=== PATIENT | female | born 1970 | race Caucasian/White ===

== ENCOUNTER → 2018-12-13 18:08 | Outpatient (CLI) | payer MEDICARE, MEDICAID ==
[2018-12-18 18:07] LABS: AEROBE ID Final report (())
== END | disposition home or self-care (01) ==
LOC: D.LABREF 18:08
PROVIDERS: ATTEND Urology
DX: D72.829 Elevated white blood cell count, unspecified (principal)

== ENCOUNTER → 2018-12-20 08:01 | Outpatient (CLI) | payer MEDICARE, MEDICAID | END | disposition home or self-care (01) | LOC: D.CT 08:01 | PROVIDERS: ATTEND Urology | DX: Z87.442 Personal history of urinary calculi (principal) ==

== ENCOUNTER → 2019-07-13 07:49 | Outpatient (CLI) | payer MEDICARE, MEDICAID | END | disposition home or self-care (01) | LOC: D.CT 07:49 | PROVIDERS: ATTEND Urology | DX: Q61.5 Medullary cystic kidney (principal) ==

== ENCOUNTER → 2019-07-23 18:12 | Outpatient (CLI) | payer MEDICARE, MEDICAID | END | disposition home or self-care (01) | LOC: D.LABREF 18:12 | PROVIDERS: ATTEND Urology | DX: N39.0 Urinary tract infection, site not specified (principal) ==

== ENCOUNTER 2019-08-02 08:41 | Day surgery (SDC) | payer MEDICARE, MEDICAID ==
[~2019-08-02] VITALS: Ht 160 cm; Wt 61.2 kg
[~2019-08-02 08:41] MED LIST: AMOXICILLIN500 M1 PO; BRILINTA90 MG PO; CYMBALTA30 MG; FLOMAX0.4 MG PO; HYDROCODON-ACE1 EAC7 PO; TOPROL XL25 MG PO; UROCIT-K10 MEQ PO; VALIUM10 MG PO
[2019-08-02 09:19] LABS: HEMATOCRIT 46.4 % (36.0-48.0); HEMOGLOBIN 15.4 g/dL (12-16); MCH 32.3 pg (26.0-34.0); MCHC 33.2 g/dL (31.0-37.0); MCV 97.3 fL (80.0-100.0); MEAN PLATELET VOLUME 10.9 fL (7.4-10.4); RBC 4.77 10x6/uL (4.00-5.40); RDW 13.3 % (11.5-14.5); WBC 6.6 10x3/uL (4.8-10.8)
[2019-08-02 09:43] VITALS: BP 92/52; Ht 160 cm; Wt 61.2 kg
--- NOTE | 2019-08-02 16:13 | NUR ---
1335 IV REMOVED AND INSTRUCTIONS GIVEN TO PT.
--- NOTE | 2019-08-02 18:55 | OP ---
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 PROCEDURES: Cystoscopy, left retrograde pyelogram, left extracorporeal shockwave lithotripsy times 2500 shocks. FINDINGS: Radiodense right renal stones, radiolucent left upper pole nolberto 4-mm stone. BLOOD LOSS: None. CLINICAL HISTORY: This is a 48-year-old female with a history of medullary sponge kidney and persistent passage of small kidney stones. She is on potassium citrate to alkalinize the urine and to prevent formation of new stones. She does have preexisting old stones. Her CT scan suggested a 14-mm right upper pole renal stone and a 9-mm left renal stone. There are no ureteral stones or hydronephrosis. She continues to have ongoing left-sided flank pain. Therefore, we had planned for a left ureteral stent insertion and left ESWL today. She was given ampicillin and sulbactam mental health practitioner to the OR. SHE IS ALLERGIC TO CODEINE, MORPHINE AND LEVAQUIN. She is getting [place] at the present time. DESCRIPTION OF PROCEDURE: The patient was placed on the treatment table. We could not identify a definite radiodense stone on the left side. On the right side, we could see some punctate stones arrayed in the calices. It was therefore decided to give her TIVA initially and we could do a retrograde pyelogram on the left side in order to see if we can find the stone. She was placed into lithotomy position and prepped and draped. 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 I do not see any other genital warts elsewhere. A 21-Hong Konger cystoscope with 30-degree lens was used for visualization. She has single ureteral orifices in the bladder. There were no bladder tumors seen. The left ureteral orifice was intubated with a 5-Hong Konger open-ended ureteral catheter. Diluted contrast was injected. The left ureter appears hydronephrotic, but there are no stones or other filling defects. It may just be a very dilated ureter chronically. The left kidney showed a radiolucent filling defect in the upper pole lateral nolberto. This was presumably our stone as we could see a whole rim of contrast around it. We then targeted the stone. She was converted to general anesthetic. Using the contrast to target the stone, we gave 1500 shocks. At that point, the contrast had washed out. The scope was reintroduced and another retrograde pyelogram was performed. This showed that the stone has broken up at this point and there was a 2-mm speck as the largest speck remaining. We decided to target this again and gave another 1000 shocks for a total of 2500 shocks. The patient was then awakened and brought to the recovery room. I will see her in followup in 2 weeks' time with a KUB. At that time, I will discuss excision of the genital warts also. Because of the small size of the stone involved, I did not OPERATIVE REPORT [id number] HAILEE VORA give her a left ureteral stent. TRANSINT:[id number] Voice Confirmation ID: [id number] DOCUMENT ID: [id number] CLAUDIA SHETTY MD at 1855 CC: [id number] DICTATION DATE: 08/02/19 1224 REGISTERED MEDICAL ASSISTANT: 08/02/19 1617 [facility] 08/02/19 [id number] [place] [address]
== END 2019-08-02 13:55 | disposition home or self-care (01) ==
LOC: D.OPS 08:41 → D.PAN 09:55 → D.OPS 10:45 → D.PAN 10:45 → D.OPS 11:00 → D.PAN 12:20 → D.OPS 13:55
PROVIDERS: Anesthesiology; ATTEND Urology
DX: Q61.5 Medullary cystic kidney (principal); N20.0 Calculus of kidney; I25.2 Old myocardial infarction; I10 Essential (primary) hypertension; I25.10 Atherosclerotic heart disease of native coronary artery without angina pectoris; E78.00 Pure hypercholesterolemia, unspecified; Z72.0 Tobacco use; B07.9 Viral wart, unspecified

== ENCOUNTER 2019-09-10 13:05 | Day surgery (SDC) | payer MEDICARE, MEDICAID ==
[2019-09-07 11:36] LABS: CALCIUM 8.4 mg/dL (8.5-10.1); CARBON DIOXIDE 26.1 mmol/L (21.0-32.0); CREATININE - SERUM 1.3 mg/dL (0.6-1.3); POTASSIUM - SERUM 4.1 mmol/L (3.5-5.1)
[2019-09-07 11:37] LABS: UDS - AMPHET NEGATIVE QUAL (NEGATIVE); UDS - BARB NEGATIVE QUAL (NEGATIVE); UDS - BENZO POSITIVE QUAL (NEGATIVE); UDS - COCAINE NEGATIVE QUAL (NEGATIVE); UDS - OPIATE NEGATIVE QUAL (NEGATIVE); UDS - PCP NEGATIVE QUAL (NEGATIVE); UDS - THC POSITIVE QUAL (NEGATIVE)
[2019-09-07 11:44] LABS: BASOPHILS 0.1 % (0-2); EOSINOPHILS 1.1 % (0-7); HEMATOCRIT 44.8 % (36.0-48.0); HEMOGLOBIN 14.7 g/dL (12-16); IMMATURE GRANULOCYTES 0.2 % (0-5); MCH 32.6 pg (26.0-34.0); MCHC 32.8 g/dL (31.0-37.0); MCV 99.3 fL (80.0-100.0); MEAN PLATELET VOLUME 11.2 fL (7.4-10.4); MONOCYTES 5.3 % (2-11); NEUTROPHILS 60.3 % (40-80); PLATELET COUNT 169 10x3/uL (130-400); RBC 4.51 10x6/uL (4.00-5.40); RDW 13.2 % (11.5-14.5); WBC 8.3 10x3/uL (4.8-10.8)
[~2019-09-10] VITALS: Ht 160 cm; Wt 54.9 kg
[2019-09-10 07:41] VITALS: BP 90/58; Ht 160 cm; Wt 54.9 kg
--- NOTE | 2019-09-10 12:11 | NUR ---
1210 WARM BLANKET SUPPLIED
--- NOTE | 2019-09-10 12:29 | NUR ---
1205 DR. ANDREA ROUNDS ON PT. WITH DAUGHTER.
--- NOTE | 2019-09-10 13:02 | NUR ---
PT LEFT UNIT VIA WC AT 1302
--- NOTE | 2019-09-10 13:02 | NUR ---
DC INSTRUCTIONS GIVEN TO PT. STATES UNDERSTANDING. DC'D IV CATH FULLY INTACT.
--- NOTE | 2019-09-11 11:42 | OP ---
PATIENT NAME: HAILEE VORA MEDICAL RECORD: [id number] :68 LOCATION:D[facility] ADMISSION DATE: SURGEON: VIVIEN ANDREA MD DATE OF OPERATION: 09/10/2019 PREOPERATIVE DIAGNOSIS: Vulvar mass. POSTOPERATIVE DIAGNOSES: 1. Vulvar cystic mass. 2. Vulvar solid mass. PROCEDURE PERFORMED: Excision of vulvar masses. SURGEON: Vivien Andrea MD CHILD WELFARE ASSISTANT: Dasha Maldonado ANESTHESIOLOGIST: Dr. Munoz. ANESTHESIA: General with LMA. FINDINGS: A cystic mass located at the 10 o'clock position in the vulva deep tissues. With dissection, a solid granular mass was found just medial and inferior to this. SPECIMENS REMOVED: 1. Vulvar mass. 2. Granular aspirate portions of mesh tape. SPECIMEN DISPOSITION: All specimens were to pathology. ESTIMATED BLOOD LOSS: Minimal. FLUIDS: 1 liter lactated Ringer's. URINE OUTPUT: Quantity sufficient void prior to this procedure. COMPLICATIONS: None. DRAINS: None. INDICATIONS: The patient is a 48-year-old female with multiple surgeries for a persistent right Bartholin's gland. The patient has had marsupialization and removal of her gland. Shortly after the last procedure, the patient developed a cystic mass of the right vulva with fistulous drainage to the perineum. The patient is consented for removal of mass and any indicated procedure. DESCRIPTION OF PROCEDURE: After informed consent was assured, the patient was taken to the operating room where she was placed in [facility]. The patient is now prepped and draped in the usual sterile fashion. The vulva was examined and 2 fistulous tracts were identified and lacrimal duct dilators were used to follow this tract to the cystic mass. An elliptical incision was made around the fistulas and using a 15 blade incision was extended 2 cm above and 2.5 to 3 cm below this elliptical incision about the fistulas. The dissection begins with Metzenbaum scissors. The dissection of the deep tissues from the OPERATIVE REPORT [id number] HAILEE VORA cystic mass is concluded and the mass and fistulous tracts were removed. Examination reveals a deeper solid mass. This was grasped with an Allis clamp and placed on gentle traction and dissection of this mass continues both in the deeper tissues and moving medial to the more superficial tissues underlying the vaginal mucosa. These tissues were removed and sent to pathology. During the dissection of the solid mass, a portion of vaginal tape is encountered and removed as well. The deep tissue was now reapproximated with interrupted 3-0 Vicryl on a SH needle. Once the space has been eliminated, the skin of the vulva was reapproximated in a subcuticular fashion with some trimming of the epidermis for good reapproximation. Sponge, lap, and needle counts correct times 2. TRANSINT:[id number] Voice Confirmation ID: [id number] DOCUMENT ID: [id number] VIVIEN ANDREA MD at 1142 CC: [id number] DICTATION DATE: 09/10/19 1119 YARD FOREMAN: 09/10/192039 [facility] 09/10/19 [facility] [address] [place] [address]
== END 2019-09-10 13:06 | disposition home or self-care (01) ==
LOC: D.OPS 13:05
PROVIDERS: Anesthesiology; ATTEND Obstetrics & Gynecology
DX: N90.7 Vulvar cyst (principal); N90.89 Other specified noninflammatory disorders of vulva and perineum; Z72.0 Tobacco use; N94.10 Unspecified dyspareunia; E78.00 Pure hypercholesterolemia, unspecified; I10 Essential (primary) hypertension; I25.2 Old myocardial infarction; I25.10 Atherosclerotic heart disease of native coronary artery without angina pectoris

== ENCOUNTER → 2019-09-27 07:15 | Day surgery (SDC) | payer MEDICARE, MEDICAID ==
[~2019-09-27] VITALS: Ht 160 cm; Wt 54.9 kg
[2019-09-27 07:36] LABS: HEMATOCRIT 45.8 % (36.0-48.0); HEMOGLOBIN 15.1 g/dL (12-16); MCH 32.2 pg (26.0-34.0); MCV 97.7 fL (80.0-100.0); MEAN PLATELET VOLUME 10.9 fL (7.4-10.4); RBC 4.69 10x6/uL (4.00-5.40); WBC 14.1 10x3/uL (4.8-10.8)
[2019-09-27 07:56] VITALS: BP 105/62; Ht 160 cm; Wt 54.9 kg
--- NOTE | 2019-09-27 10:52 | OP ---
PATIENT NAME: HAILEE VORA MEDICAL RECORD: [id number] :68 LOCATION:D.[facility] ADMISSION DATE: SURGEON: CLAUDIA SHETTY MD DATE OF OPERATION: 09/27/2019 SURGEON: Claudia Shetty MD ANESTHESIA: General anesthesia by Jez Curtis CRNA. DIAGNOSIS: Medullary sponge kidney with multiple right renal stones. PROCEDURE: Right extracorporeal shock wave lithotripsy (ESWL) times 3000 shocks. About 7 of the stones were treated being in the lower and middle upper pole. FINDINGS: Multiple radiodense right renal stones about 3-4 mm in size. ESTIMATED BLOOD LOSS: None. CLINICAL HISTORY: This is a 49-year-old female, who has a known history of renal medullary sponge kidney and nephrocalcinosis. She is on potassium citrate to alkalinize the urine and prevent formation of new stones. She continues to pass stones and have ongoing right flank pain. It is not certain which of her multiple right renal stones causing the pain and therefore, we are going to try to treat as many of the stones as possible in one session. We are limited to 3000 shocks, maximum to a kidney at any given time. She is not allergic to any antibiotics. She was given ampicillin and sulbactam correctional food service supervisor to the OR. DESCRIPTION OF PROCEDURE: The patient was placed on the treatment table. She was given fluoroscopy so that we could visualize the stones. The stones are easily targeted. She was then given induction of general anesthesia. We started from the lowest pole stone cluster and gave that stone a few 100 shocks and then moved progressively up towards the cranial end of the kidney. In this way, the lower pole stone clusters as well as the mid pole stone clusters well treated, about 7 stones were treated. We also treated one stone in the mid upper pole. There is still an upper pole stone cluster which we could not treat. However, what we did treat has been completely broken up. I will see her back in followup in 2 weeks' time with a KUB and will determine if she needs further treatment of the remaining upper pole stone cluster. TRANSINT:[id number] Voice Confirmation ID: [id number] DOCUMENT ID: [id number] CLAUDIA SHETTY MD at 1052 CC: [id number] DICTATION DATE: 09/27/19 0957 SOUND EFFECTS TECHNICIAN: 09/27/19 1033 [facility] [address] [facility] [place] [address]
--- NOTE | 2019-09-27 13:46 | NUR ---
1135 ALL DC CRITERIA MET. TAKEN OUT VIA W/C AND ASSISTED TO CAR WITH FRIEND. ADVISED TO CALL OR COME BACK IF ANY PROBLEMS.
== END | disposition home or self-care (01) ==
LOC: D.OPS 07:15 → D.PAN 08:15
PROVIDERS: Anesthesiology; ATTEND Urology
DX: N20.0 Calculus of kidney (principal); Q61.5 Medullary cystic kidney; I10 Essential (primary) hypertension; I51.9 Heart disease, unspecified

== ENCOUNTER → 2019-10-09 09:13 | Outpatient (CLI) | payer MEDICARE, MEDICAID ==
[2019-09-27 07:56] VITALS: BMI 21.4
[~2019-10-09 09:13] MED LIST changes: +BACTRIM 400-801 TAB PO; +HYDROCODON-ACE1 EAC2 PO
== END | disposition home or self-care (01) ==
LOC: D.RAD 09:13
PROVIDERS: ATTEND Urology
DX: Q61.5 Medullary cystic kidney (principal); N20.0 Calculus of kidney

== ENCOUNTER → 2019-10-10 17:10 | Outpatient (CLI) | payer MEDICARE, MEDICAID ==
[2019-09-27 07:56] VITALS: BMI 21.4
== END | disposition home or self-care (01) ==
LOC: D.LABREF 17:10
PROVIDERS: ATTEND Urology
DX: R31.9 Hematuria, unspecified (principal); R82.90 Unspecified abnormal findings in urine

== ENCOUNTER 2019-10-11 07:12 | Day surgery (SDC) | payer MEDICARE, MEDICAID ==
[~2019-10-11] VITALS: Ht 160 cm; Wt 53.1 kg
[2019-10-11 07:37] LABS: BASOPHILS 0.2 % (0-2); EOSINOPHILS 2.2 % (0-7); HEMATOCRIT 45.5 % (36.0-48.0); HEMOGLOBIN 15.1 g/dL (12-16); IMMATURE GRANULOCYTES 0.5 % (0-5); LYMPHOCYTES 37.6 % (15-50); MCH 32.5 pg (26.0-34.0); MCHC 33.2 g/dL (31.0-37.0); MCV 98.1 fL (80.0-100.0); MEAN PLATELET VOLUME 10.8 fL (7.4-10.4); MONOCYTES 7.5 % (2-11); PLATELET COUNT 187 10x3/uL (130-400); RBC 4.64 10x6/uL (4.00-5.40); RDW 12.8 % (11.5-14.5); WBC 9.6 10x3/uL (4.8-10.8)
[2019-10-11 09:27] VITALS: BP 116/69; Ht 160 cm; Wt 53.1 kg
--- NOTE | 2019-10-11 12:49 | OP ---
PATIENT NAME: HAILEE VORA MEDICAL RECORD: [id number] :68 LOCATION:[facility] ADMISSION DATE: SURGEON: CLAUDIA SHETTY MD DATE OF OPERATION: 10/11/2019 SURGEON: Claudia Shetty MD ANESTHESIA: General anesthesia by Aliya Vasquez CRNA DIAGNOSES: Medullary sponge kidney with right renal stones. PROCEDURES: Cystoscopy, right ureteral stent insertion 6-Beninese x 24 cm with string attached, right ESWL times 3000 shocks. FINDINGS: Small right radiodense renal stones. No stones seen along the ureter. BLOOD LOSS: None. CLINICAL HISTORY: This is a 49-year-old female with a history of medullary sponge kidney. She has been passing small renal stones with episodes of acute renal colic. Recently, we performed lithotripsy without a stent inserted. We treated the larger stones from the lower pole and moved up towards the mid pole of the kidney. In the interim, she has passed some stone fragments which she has collected. We will eventually send those for stone analysis once she has some over to us. However, she still has episodes of flank pain. There is a collection in the upper pole and the mid to upper pole of the kidney, which we have not treated yet. She comes now to have these stones treated. She was given ampicillin and sulbactam 3 grams IV manager of business operations to the OR. She does not want to have a ureteral stent inserted to help relieve this passage of the stones. DESCRIPTION OF PROCEDURE: The patient was placed on the treatment table. Fluoroscopy was performed and we could see the stones in the kidney. There are relatively small in size. She was then given induction of general anesthesia and placed into lithotomy position. She was prepped and draped. A 21-Beninese cystoscope with 30-degree lens was used for visualization. No bladder tumors were seen. The Sensor wire was inserted into the right ureteral orifice. It was passed up into the right renal pelvis. Following the Sensor wire on fluoroscopy, we could not find any radiodensities along it to indicate a ureteral stone. Once the wire was in the correct position, then the stent was passed up into the kidney over the wire. The wire was then withdrawn entirely. The stent was pushed into the bladder using a pusher. The bladder was emptied through the cystoscope sheath and then the scope was removed entirely. The string on the distal end of the stent was maintained. It was taped to the suprapubic region with a piece of Tegaderm. We then targeted the mid pole stones and gave them several hundred shocks. Whatever was required to break them up. Then, we moved to the next stone more cranially and in this way progressed up to treat all of the larger stones that we could see. I will see her in followup in 2 weeks' time with a KUB to determine the remaining stone burden and remove the stent at that time. TRANSINT:[id number] Voice Confirmation ID: [id number] DOCUMENT ID: [id number] OPERATIVE REPORT [id number] HAILEE VORA ROBERT S MD at 1249 CC: [id number] DICTATION DATE: 10/11/19 1059 MASK DESIGN ENGINEER: 10/11/19 1120 [facility] [address] [place] [address]
--- NOTE | 2019-10-11 13:47 | NUR ---
1325 IV DC'D. CATHETER TIP INTACT. NO BLEEDING AT SITE. BANDAID APPLIED. PT IN CHEERFUL MOOD AND STATES SHE UNDERSTANDS DISCHARGE INSTRUCTIONS. SHE IS RATING HER PAIN LEVEL AT A 8 OUT OF 10, BUT IS NOT TEARFUL.
--- NOTE | 2019-10-11 13:50 | NUR ---
1345 PT VERBALIZES DESIRE TO GO HOME EVEN WITH PAIN LEVEL OF 8. STATES SHE WILL TAKE ANOTHER PAIN PILL AFTER SHE GETS HOME WHICH SHE ESTIMATES AT ANOTHER 2 HOURS IN TRAVEL.
== END 2019-10-11 13:45 | disposition home or self-care (01) ==
LOC: D.PAN 07:12 → D.OPS 09:30 → D.PAN 13:45
PROVIDERS: ATTEND Urology
DX: Q61.5 Medullary cystic kidney (principal); N20.0 Calculus of kidney; I10 Essential (primary) hypertension; I25.2 Old myocardial infarction; Z72.0 Tobacco use; N30.00 Acute cystitis without hematuria

== ENCOUNTER 2020-04-10 05:20 | Day surgery (SDC) | payer MEDICARE, MEDICAID ==
[2020-04-08 10:13] LABS: HEMATOCRIT 42.5 % (36.0-48.0); HEMOGLOBIN 13.9 g/dL (12-16); MCHC 32.7 g/dL (31.0-37.0); MCV 97.9 fL (80.0-100.0); MEAN PLATELET VOLUME 10.6 fL (7.4-10.4); RBC 4.34 10x6/uL (4.00-5.40)
[~2020-04-10] VITALS: Ht 160 cm; Wt 52.2 kg
[~2020-04-10 05:20] MED LIST changes: +LIPITOR40 MG PO
[2020-04-10 07:00] VITALS: BP 93/53; Ht 160 cm; Wt 52.2 kg
--- NOTE | 2020-04-10 10:20 | OP ---
PATIENT NAME: HAILEE VORA MEDICAL RECORD: [id number] :68 LOCATION:D[facility] ADMISSION DATE: SURGEON: ABDIEL SHETTY MD DATE OF OPERATION: 04/10/2020 SURGEON: Abdiel Shetty MD ANESTHESIA: General anesthesia by Feng Juarez CRNA DIAGNOSIS: Right upper pole renal stones. PROCEDURE: Right extracorporeal shockwave lithotripsy times 3000 shocks. FINDINGS: Faintly radiodense right upper pole renal stones, which are better defined with IV contrast for IVP. CLINICAL HISTORY: This is a 49-year-old female with history of right-sided kidney stones. At her last lithotripsy session, we treated the lower pole stones and some mid pole stones. She still has a collection of stones in the right upper pole of the kidney. She comes now to have these treated. She does not want to have a stent placed. She was given Ancef 2 grams IV injection molding machine operator to the OR. DESCRIPTION OF PROCEDURE: We first placed the patient on the treatment table and performed fluoroscopy. She was constipated and there are lot of contents in the colon. It was difficult to define, which were the actual radiodensities which formed the kidney stones. By scanning back and forth in 2 planes, we finally identified some possible specimens. We then gave her 50 mL of Isovue 61% IV. This allowed us to get an IVP and this better defined the renal collecting system and renal pelvis. We could thus target the stones within the right upper pole calices. These were targeted in 2 planes. The patient was then given induction of general anesthesia and then we managed to start treatment. At 1500 shocks, we retargeted another stone cluster in the upper pole of the kidney and the more lateral plane and completed the rest of the treatment on these stones. At the end of the procedure, the upper pole was now largely clear of any calcifications. I will see the patient back in followup in 1 months' time with a KUB. TRANSINT:[id number] Voice Confirmation ID: [id number] DOCUMENT ID: [id number] ABDIEL SHETTY MD at 1020 CC: [id number] DICTATION DATE: 04/10/20905 CARD DECORATOR: 04/10/2057 [id number] [place] [address]
--- NOTE | 2020-04-10 10:50 | NUR ---
1015 PT APPEARS MUCH MORE RELAXED AND STATES THE NORCO GIVEN EARLIER IS DECREASING HER PAIN LEVEL FROM A 9 OUT OF 10 TO A 6 OUT OF 10. PT IS PARTIALLY DRESSED AND ASKING TO GO HOME. SHE STATES SHE CAN REST BETTER IN HER BED. 1020 IV DC'D. CATHETER TIP INTACT. NO BLEEDING AT SITE AFTER HOLDING PRESSURE. COBAN DRESSING APPLIED.
== END 2020-04-10 10:30 | disposition home or self-care (01) ==
LOC: D.OPS 05:20 → D.PAN 07:30 → D.OPS 07:30
PROVIDERS: Anesthesiology; ATTEND Urology
DX: N20.0 Calculus of kidney (principal); I10 Essential (primary) hypertension; I25.2 Old myocardial infarction; N23 Unspecified renal colic; Q61.5 Medullary cystic kidney; Z72.0 Tobacco use